=== PATIENT | female | born 1980 | race Caucasian/White ===

== ENCOUNTER 2023-07-11 08:56 | Emergency (ER) | payer OTHER ==
[2023-07-11] MEDS ORDERED: Ibuprofen 600 MG Tab PO ONE (09:05)
== END 2023-07-11 09:52 | disposition home or self-care (01) ==
LOC: DL.ED 08:56
DX: S46.211A Strain of muscle, fascia and tendon of other parts of biceps, right arm, initial encounter (principal); W07.XXXA Fall from chair, initial encounter
CPT/HCPCS: 73060-RT; 99282; 99283; A9270-GY